=== PATIENT | male | born 1955 | race Two or more races ===

== ENCOUNTER 2020-03-20 09:15 | Inpatient (IN) | payer OTHER ==
[~2020-03-20] VITALS: Ht 170.2 cm; Wt 68.9 kg
[2020-03-20] MEDS ORDERED: FORTAMET1000 MG PO (10:54)
[2020-03-20] MEDS ORDERED: GLIPIZIDE XL10 MG PO (10:55)
[2020-03-20] MEDS ORDERED: VERELAN240 MG PO (10:55)
[2020-03-20] MEDS ORDERED: HYDROCHLOROTHIA25 MG PO (10:55)
[2020-03-20] MEDS ORDERED: METOPROLOL SUCC50 MG PO (10:56)
[2020-03-20] MEDS ORDERED: SIMVASTA PO (10:56)
[2020-03-20] MEDS ORDERED: PRILOSE PO (10:57)
[2020-03-23] MEDS ORDERED: SIMVASTATIN10 MG PO (11:24)
[2020-03-23] MEDS ORDERED: OMEPRAZOLE40 MG PO (11:24)
[2020-03-27] MEDS ORDERED: OXYC1TAB9 PO (09:44)
[2020-03-27] MEDS ORDERED: Calan Sr 240MG TABLE PO (09:44)
[2020-03-27] MEDS ORDERED: TAMS0.4C PO (09:44)
[2020-03-27] MEDS ORDERED: TOPROL XL50 M1 PO (09:44)
[2020-03-27] MEDS ORDERED: CLONIDINE HCL0.2 MG PO (09:44)
== END 2020-03-27 14:46 | disposition home or self-care (01) | DRG 330 ==
LOC: ADM 09:15 → EDSTATUS 09:15 → O/R 03-23 06:10 → SURG 03-23 06:10 → SURH 03-23 09:15 → SURG 03-23 13:43
PROVIDERS: ADMIT Surgery; ATTEND Surgery
PROC: 07BC4ZX Excision of Pelvis Lymphatic, Percutaneous Endoscopic Approach, Diagnostic (ICD-10-PCS; 2020-03-24)
PROC: 0DTF4ZZ Resection of Right Large Intestine, Percutaneous Endoscopic Approach (ICD-10-PCS; principal; 2020-03-24 12:30)
DX: C18.2 Malignant neoplasm of ascending colon (principal); C77.5 Secondary and unspecified malignant neoplasm of intrapelvic lymph nodes; I16.0 Hypertensive urgency; F41.9 Anxiety disorder, unspecified; Z20.828 Contact with and (suspected) exposure to other viral communicable diseases